=== PATIENT | female | born 1955 | race Caucasian/White ===

== ENCOUNTER 2020-06-17 16:54 | Outpatient (CLI) | payer MEDICARE, OTHER ==
--- NOTE | 2020-06-18 08:56 | XRAY Report ---
PROCEDURE: Cervical Spine 2 View INDICATIONS: NECK PAIN TECHNIQUE: 3 view(s) of the cervical spine were acquired. COMPARISON: None. FINDINGS: Bones: No fractures or dislocations to the T1 level. The lateral masses of C1 appear intact on the odontoid view. No suspicious bony lesions. There is disc space narrowing at C4-5 with anterior oste ophytes and endplate sclerosis consistent with degenerative disc disease. Soft tissues: No prevertebral soft tissue swelling. IMPRESSION: 1. Degenerative disc disease at C4-5. 2. No acute abnormality. Reviewed by: Raul Marie on 06/18/2020 8:55 AM [facility] Approved by: Raul Marie on 06/18/2020 8:55 AM [facility] Station ID: [id number]
== END 2020-06-17 16:55 | disposition home or self-care (01) ==
LOC: DI.S 16:54
PROVIDERS: ATTEND Internal Medicine
DX: M50.321 Other cervical disc degeneration at C4-C5 level (principal)
CPT/HCPCS: 72040

== ENCOUNTER 2021-01-29 09:58 | Outpatient (CLI) | payer MEDICARE, OTHER | END 2021-01-29 09:59 | disposition home or self-care (01) | LOC: DI 09:58 | PROVIDERS: ATTEND Internal Medicine Cardiovascular Disease | DX: I77.810 Thoracic aortic ectasia (principal); I87.8 Other specified disorders of veins | CPT/HCPCS: 93306 ==

== ENCOUNTER 2021-05-13 07:00 | Outpatient (CLI) | payer MEDICARE, OTHER ==
[2021-05-13 20:02] LABS: BILIRUBIN,URINE NEGATIVE (NEGATIVE); GLUCOSE, URINE (UA) NEGATIVE (NEGATIVE); KETONES,URINE (UA) NEGATIVE (NEGATIVE); LEUKOCYTE ESTERASE, URINE MODERATE (NEGATIVE); NITRITE,URINE NEGATIVE (NEGATIVE); OCCULT BLOOD,URINE MODERATE (NEGATIVE); PROTEIN,URINE NEGATIVE (NEGATIVE); UROBILINOGEN,URINE 0.2 (NORMAL) E.U./dL (NORMAL)
[2021-05-13 20:25] LABS: BACTERIA,URINE None Seen /HPF (None Seen); CLARITY,URINE CLEAR (CLEAR); RBC,URINE 0-5 /HPF (0-5); SQUAMOUS EPITHELIAL CELL,UR NONE SEEN (<= Few); WBC,URINE 0-3 /HPF (0-5)
== END 2021-05-13 23:59 | disposition home or self-care (01) ==
LOC: LAB 07:00
PROVIDERS: ATTEND Emergency Medicine
DX: N39.0 Urinary tract infection, site not specified (principal)
CPT/HCPCS: 81001; 87086; 87181

== ENCOUNTER 2021-10-19 10:00 | Day surgery (SDC) | payer MEDICARE, OTHER ==
[2021-10-19] MEDS ORDERED: LACTATED RINGERS 1,000 ML IV ONE ×2 (10:34→11:45)
--- NOTE | 2021-10-19 10:52 | ANESTHESIA ---
Pre-Anesthesia VS, & Labs - Diagnosis screening, hx polyps - Procedure colonoscopy Vital Signs: Temp Pulse Resp BP Pulse Ox 36.6 C 78 19 121/77 99 10/19/21 10:18 10/19/21 10:18 10/19/21 10:18 10/19/21 10:18 10/19/21 10:18 Height: 5 ft 8 in Weight (kg): 55.3 kg Body Mass Index: 18.5 BMI Classification: Healthy weight - NPO >8 hours - Is Patient ?: No - Lab Results Lab results reviewed: Yes Home Medications and Allergies Home Medications: Ambulatory Orders Zolpidem Tartrate [Ambien] 10 mg PO QPM PRN 10/11/21 Zolpidem Tartrate [Ambien] 10 mg PO QPM PRN 10/11/21 Allergies/Adverse Reactions: Allergies Allergy/AdvReac Type Severity Reaction Status Date / Time Interferons Allergy Unknown Verified 10/11/21 11:49 Anes History & Medical History - Anesthetic History Anesthesia Complications: reports: No previous complications, Slow wake-up (NM scope in past) Family history of Anesthesia Complications: Denies Family history of Malignant Hyperthermia: Denies - Medical History Cardiovascular: reports: Murmur, Valve disorder Pulmonary: reports: None Gastrointestinal: reports: GERD, Colon polyps Urinary: reports: None Neuro: reports: Multiple sclerosis (dx 89, last admission 10 years ago) Musculoskeletal: reports: Osteoarthritis Endocrine/Autoimmune: reports: None Skin: reports: Other - Surgical History General: reports: Colonoscopy, Other Gynecologic: reports: Other Exam General: Alert, Oriented x3, Cooperative Dental: WNL Mouth Openin Fingerbreadth Neck Mobility: Normal Mallampati classification: II Thyromental Distance: 4-6 cm Respiratory: Lungs clear, Normal breath sounds, No respiratory distress Cardiovascular: Regular rate Neurological: Normal speech Mental/Cognitive Status: Alert/Oriented X3, Normal for patient Cognitive Status: Within normal limits Plan Anesthesia Type: Total IV Consent for Procedure(s) Verified and Reviewed: Yes Code Status: Attempt Resuscitation ASA classification: 2-Mild systemic disease Is this case an emergency?: No
[2021-10-19] MEDS ORDERED: PROPOFOL 500 MG/50 ML 500 MG/50 ML VIAL ONE (11:17)
[2021-10-19] MEDS ORDERED: MIDAZOLAM 2 MG/2 ML VIAL ONE (11:18)
[2021-10-19 11:59] VITALS: BP 123/72
--- NOTE | 2021-10-19 12:07 | ANESTHESIA POST OP EVALUATION ---
Anesthesia Post Eval - Post Anesthesia Eval Vitals: Last Vital Signs Temp 36.3 C L 10/19/21 11:38 Pulse 72 10/19/21 11:58 Resp 16 10/19/21 11:58 BP 123/72 10/19/21 11:58 Pulse Ox 100 10/19/21 11:58 CV Function Including HR & BP: Stable Pain Control: Satisfactory Nausea & Vomiting: Negative Mental Status: Baseline Respiratory Status: Airway Patent Hydration Status: Satisfactory Anesthesia Complications: None
== END 2021-10-19 10:01 | disposition home or self-care (01) ==
LOC: SDS 10:00
PROVIDERS: ATTEND Surgery
DX: Z12.11 Encounter for screening for malignant neoplasm of colon (principal); K64.8 Other hemorrhoids; Z86.010 Personal history of colon polyps; Z80.0 Family history of malignant neoplasm of digestive organs; G35 Multiple sclerosis; G47.33 Obstructive sleep apnea (adult) (pediatric)
CPT/HCPCS: G0105; J7120

== ENCOUNTER 2022-02-23 12:03 | Outpatient (CLI) | payer MEDICARE, OTHER ==
--- NOTE | 2022-02-23 18:09 | Ultrasound Report ---
PROCEDURE: Soft tissue ultrasound INDICATIONS: GRANULOMA OF BUTTOCK TECHNIQUE: Real-time transabdominal scanning was performed of the soft tissues overlying the left gluteal muscul ature COMPARISON: None. FINDINGS: There are at least 3 separate hyperechoic shadowing foci in the superficial soft tissues tissues over lying the left gluteal musculature. First is oval hyperechoic with peripheral vascularity measuring 1 .0 x 0.5 cm. The second is linear and hyperechoic without vascularity but with significant shadowing measuring 0.8 cm. Third subcentimeter hyperechoic focus with shadowing IMPRESSION: Ultrasound consistent with multifocal injection granulomas Reviewed by: Michael Good MD on 02/23/2022 5:08 PM [facility] Approved by: Michael Good MD on 02/23/2022 5:08 PM [facility] Station ID: [id number]
== END 2022-02-23 12:04 | disposition home or self-care (01) ==
LOC: DI 12:03
PROVIDERS: ATTEND Surgery
DX: L92.9 Granulomatous disorder of the skin and subcutaneous tissue, unspecified (principal)

== ENCOUNTER 2022-04-05 16:02 | Outpatient (CLI) | payer MEDICARE, OTHER | END 2022-04-05 16:03 | disposition home or self-care (01) | LOC: DI.S 16:02 | PROVIDERS: ATTEND Internal Medicine | DX: Z53.9 Procedure and treatment not carried out, unspecified reason (principal) ==

== ENCOUNTER 2022-04-05 16:33 | Outpatient (CLI) | payer MEDICARE, OTHER ==
--- NOTE | 2022-04-06 17:39 | XRAY Report ---
PROCEDURE: Chest 2 View X-Ray INDICATIONS: POST COVID CHRONIC COUGH TECHNIQUE: 2 view(s) of the chest. COMPARISON: None. FINDINGS: Surgical changes and devices: None. Lungs and pleura: No pleural effusions or pneumothorax. Lung volumes are increased and there is mil d flattening of the hemidiaphragms. Lungs are clear. Mediastinum: Mediastinal contours are normal. Heart size is normal. Bones and chest wall: No suspicious bony abnormalities. Soft tissues appear unremarkable. IMPRESSION: Large lung volumes which can be associated with COPD. No acute cardiopulmonary disease. Reviewed by: TONI Reyes on 04/06/2022 5:38 PM PDT Approved by: Nicole Stoner MD on 04/06/2022 5:38 PM PDT Station ID: [id number]
== END 2022-04-05 16:34 | disposition home or self-care (01) ==
LOC: DI.S 16:33
PROVIDERS: ATTEND Internal Medicine
DX: R05.3 Chronic cough (principal); U09.9 Post COVID-19 condition, unspecified

== ENCOUNTER 2023-03-27 08:00 | Outpatient (CLI) | payer MEDICARE, OTHER ==
--- NOTE | 2023-03-27 13:06 | XRAY Report ---
PROCEDURE: Ribs w/PA Chest RT INDICATIONS: CONTUSION OF RIGHT FRONT WALL OF THORAX TECHNIQUE: 2 views of the right ribs were acquired, along with a single view chest. COMPARISON: None. FINDINGS: Surgical changes and devices: None. Bones and chest wall: No fractures or dislocations. No suspicious bony lesions. Overlying soft tis sues appear unremarkable. Lungs and pleura: No pleural effusions or pneumothorax. Lungs appear clear. Mediastinum: Mediastinal contours appear normal. Heart size is normal. IMPRESSION: No displaced rib fracture or pneumothorax. Reviewed by: Augustus Fernandez MD on 03/27/2023 1:05 PM PDT Approved by: Augustus Fernandez MD on 03/27/2023 1:05 PM PDT Station ID: [id number]
== END 2023-03-27 23:59 | disposition home or self-care (01) ==
LOC: DI.S 08:00
PROVIDERS: ATTEND Physician Assistant Medical
DX: S20.211A Contusion of right front wall of thorax, initial encounter (principal)

== ENCOUNTER 2024-01-03 10:23 | Outpatient (CLI) | payer MEDICARE, OTHER ==
--- NOTE | 2024-01-03 22:22 | XRAY Report ---
PROCEDURE: Chest 2V INDICATIONS: IATROGENIC PNEUMOTHORAX TECHNIQUE: 2 views of the chest were acquired. COMPARISON: CXR 03/27/2023, 04/05/2022. FINDINGS: Surgical changes and devices: Right breast clips. Lungs and pleura: No pleural effusions or pneumothorax. Lungs are clear. Prominent lung volumes. Mediastinum: Mediastinal contours appear normal. Heart size is normal. Bones and chest wall: No suspicious bony lesions. Overlying soft tissues appear unremarkable. IMPRESSION: No acute cardiopulmonary process. Reviewed by: Sean Syed MD on 01/03/2024 10:21 PM PDT Approved by: Sean Syed MD on 01/03/2024 10:21 PM PDT Station ID: [id number]
== END 2024-01-03 10:24 | disposition home or self-care (01) ==
LOC: DI.S 10:23
DX: J95.811 Postprocedural pneumothorax (principal)

== ENCOUNTER 2024-02-05 14:07 | Outpatient (CLI) | payer MEDICARE, OTHER ==
[2024-02-05 19:50] LABS: BASOPHILS % (AUTO) 0.2 %; HCT - HEMATOCRIT 43.2 % (37.0-47.0); HGB - HEMOGLOBIN 13.9 g/dL (12.0-16.0); LYMPHOCYTES # (AUTO) 0.4 10^3/uL (1.5-3.5); LYMPHOCYTES % (AUTO) 4.7 %; MEAN CORPUSCULAR HGB CONC 32.2 g/dL (32.0-36.0); MEAN PLATELET VOLUME 9.3 fL (7.9-10.8); MONOCYTES # (AUTO) 0.1 10^3/uL (0.0-1.0); MONOCYTES % (AUTO) 1.3 %; NEUTROPHILS % (AUTO) 93.3 %; PLT - PLATELET COUNT 266 10^3/uL (130-450); RED CELL DISTRIBUTION WIDTH 13.8 % (12.0-15.0); WHITE BLOOD COUNT 8.6 x10^3/uL (4.8-10.8)
[2024-02-05 20:03] LABS: CALCIUM 9.8 mg/dL (8.5-10.3); CREATININE 0.9 mg/dL (0.6-1.3); MAGNESIUM 2.2 mg/dL (1.7-2.3); POTASSIUM 4.8 mmol/L (3.5-4.5)
== END 2024-02-05 14:08 | disposition home or self-care (01) ==
LOC: LAB.S 14:07
PROVIDERS: ATTEND Internal Medicine
DX: R25.2 Cramp and spasm (principal)
CPT/HCPCS: 36415; 80048; 83735; 85025